=== PATIENT | male | born 2000 | race Caucasian/White ===

== ENCOUNTER 2021-08-11 08:20 | Emergency (ER) | payer OTHER ==
[~2021-08-11] VITALS: Ht 175.3 cm; Wt 128.4 kg
[2021-08-11] MEDS ORDERED: DUTOPROL 25-121 EACH PO (08:34)
[2021-08-11] MEDS ORDERED: LOPRESSOR25 MG PO (12:59)
== END 2021-08-11 13:22 ==
LOC: ER 08:20
DX: R07.89 Other chest pain (principal)